=== PATIENT | male | born 1980 | race Caucasian/White ===

== ENCOUNTER 2023-12-21 22:17 | Emergency (ER) | payer OTHER, SELFPAY ==
[2023-12-21 22:27] VITALS: BP 117/81; PULSE 75; RESP 18; TEMP 36.5; O2SAT 100; BMI 27.2
--- NOTE | 2023-12-21 23:28 | ED_ITS ---
HPI - Extremity Problem General Chief complaint: Extremity Problem,Nontraumatic Stated complaint: lt foot ingrown toenail Time Seen by Provider: 12/21/23 22:49 Source: patient Mode of arrival: Ambulatory History of Present Illness HPI Narrative: Patient is a 43-year-old male with left great toe ingrown toenail. He reports it has been ongoing for the last 3 months. He is currently on antibiotics. He is active in the he has been trying to get to Podiatry but unable to do so. No fever or chills. He says he just can not take it anymore and needs it out. No fever or chills. Related Data Allergies Allergy/AdvReac Type Severity Reaction Status Date / Time No Known Drug Allergies Allergy Verified 12/21/23 22:31 Exam Initial Vital Signs Initial Vital Signs: Vital Signs Temperature 97.7 F 12/21/23 22:27 Pulse Rate 75 12/21/23 22:27 Respiratory Rate 18 12/21/23 22:27 Blood Pressure 117/81 12/21/23 22:27 Pulse Oximetry 100 12/21/23 22:27 Oxygen Delivery Method Room Air 12/21/23 22:27 GENERAL: Well-appearing, well-nourished and in no acute distress. CARDIOVASCULAR: peripheral pulses in tact, cap refill <2 sec RESPIRATORY: No respiratory distress, speaks in full sentences without difficulty EXTREMITIES: Normal range of motion, no clubbing or edema. Neurovascularly intact NEUROLOGICAL: Cranial nerves II through XII grossly intact. Normal gait and speech. SKIN: Left great toe with medial skin swelling on the lateral side significant erythema Procedures [facility] [place] Procedure Name of Procedure: Toenail removal partial Location: left great toe lateral side Technique/Description of procedure performed: Digital block. Lateral side of great toe nail easily removed including the acute. Wedge extractions Course Vital Signs Vital signs: Vital Signs - 8 hr 12/21/23 22:27 12/22/23 00:13 Temperature 97.7 F Pulse Rate 75 64 Respiratory Rate 18 17 Blood Pressure 117/81 93/50 L Pulse Oximetry 100 98 Oxygen Delivery Method Room Air Room Air MDM - Extremity (Nontraumatic) MDM Narrative Medical decision making narrative: Patient is a 43-year-old male who presents with 3 months have an ingrown toenail with increasing pain. He has been on 2 days of antibiotics is actually no sign of significant infection. Partial nail removal was successful. I suspect that he does not need antibiotics anymore. Supportive care only. He has previously had ingrown nails. Discharge Plan Departure Patient Disposition: Home Clinical Impression: Ingrowing toenail of left foot Instructions: DI for Ingrown Toenail Removal, DI for Ingrown Toenail Activity Restrictions/Additional Instructions: *You have been diagnosed with ingrown toenail *What to do: At this time you do have an ingrown toenail. Wear loose-fitting shoes for up to 2 weeks. Shower and bathe as normal. May apply antibiotic ointment for the next few days. Ingrown toenail they also reoccur. *Continue to take medications as directed Tylenol 1000 mg every 6 hours Motrin 600 mg every 6 hours *Follow up with your primary care provider in 2-3 days or call [phone] *Return to ER if you should have increasing redness swelling pain fever or any new, worsening or concerning symptoms Referrals: ProviderLeroy [Primary Care Provider] - Stand Alone Forms: Patient Portal/API
[2023-12-22 00:13] VITALS: BP 93/50; PULSE 64; RESP 17; O2SAT 98
== END 2023-12-22 00:17 | disposition home or self-care (01) ==
PROVIDERS: Emergency Provider Emergency Medicine
DX: L60.0 Ingrowing nail (principal)
CPT/HCPCS: 11765; 99281; 99283